=== PATIENT | female | born 1990 | race Caucasian/White ===

== ENCOUNTER 2020-03-22 10:11 | Outpatient (CLI) | payer BC ==
[~2020-03-22] VITALS: Ht 167.6 cm; Wt 117.7 kg
== END 2020-03-22 10:51 | disposition home or self-care (01) ==
LOC: LDOP 10:11
PROVIDERS: ATTEND Obstetrics & Gynecology
DX: O80 Encounter for full-term uncomplicated delivery (principal); Z3A.33 33 weeks gestation of pregnancy
CPT/HCPCS: 59025

== ENCOUNTER 2020-04-19 10:02 | Outpatient (CLI) | payer BC ==
[~2020-04-19] VITALS: Ht 167.6 cm; Wt 118.1 kg
[2020-04-19 10:28] VITALS: BP 120/73
[2020-04-19] MEDS ORDERED: PREN1TAB10 PO (10:47)
== END 2020-04-19 11:00 | disposition home or self-care (01) ==
LOC: LDOP 10:02
PROVIDERS: ATTEND Obstetrics & Gynecology
DX: Z34.83 Encounter for supervision of other normal pregnancy, third trimester (principal); Z3A.37 37 weeks gestation of pregnancy
CPT/HCPCS: 59025

== ENCOUNTER 2020-04-26 06:13 | Inpatient (IN) | payer BC ==
[~2020-04-26] VITALS: Ht 167.6 cm; Wt 119.5 kg
[~2020-04-26 06:13] MED LIST: PREN1TAB10 PO
[2020-04-26 06:30] VITALS: BP 132/60
[2020-04-26] MEDS: D5%-LACTATED RINGERS 1,000 ML IV SCH ×3 (06:30→22:30)
[2020-04-26] MEDS ORDERED: TERBUTALINE 1 MG/ML, 1ML IVPush PRN (06:30)
[2020-04-26] MEDS ORDERED: OXYTOCIN 30U/ 0.9% NaCL 500ML 500 ML IV PRN (06:30)
[2020-04-26] MEDS ORDERED: OXYTOCIN 30U/ 0.9% NaCL 500ML 500 ML IV ONE (06:30)
[2020-04-26] MEDS ORDERED: FENTANYL PF 100 MCG/2ML IV PRN (06:30)
[2020-04-26] MEDS ORDERED: ONDANSETRON 2MG/ML, 2ML IVPush PRN (06:30)
[2020-04-26] MEDS ORDERED: CALCIUM CARBONATE 500 MG TAB.CHEW PO PRN (06:30)
[2020-04-26] MEDS ORDERED: TERBUTALINE 1 MG/ML, 1ML SQ PRN (06:30)
[2020-04-26] MEDS: LACTATED RINGERS 1,000 ML IV SCH ×3 (07:07→19:43)
[2020-04-26] MEDS ORDERED: MISOPROSTOL 25 MCG TABLET ONE ×4 (07:10→21:59)
[2020-04-26] MEDS ORDERED: OXYTOCIN 30U/ 0.9% NaCL 500ML 500 ML ONE (07:10)
[2020-04-26] MEDS ORDERED: INSU100I11 SQ-INSULIN ×3 (07:15→07:16)
[2020-04-26] MEDS ORDERED: INSU100V13 SQ (07:18)
[2020-04-26 07:32] LABS: BASOPHILS % (AUTO) 0 % (0-1); EOSINOPHILS % (AUTO) 1 % (1-7); LYMPHOCYTES % (AUTO) 18 % (22-44); MEAN CORPUSCULAR HEMOGLOBIN 28.1 pg (27.0-34.8); MEAN CORPUSCULAR HGB CONC 33.4 g/dL (32.4-35.8); MONOCYTES % (AUTO) 8 % (2-9); NEUTROPHILS % (AUTO) 74 % (42-75); PLATELET COUNT 269 x10^3/uL (130-400); RED BLOOD COUNT 4.07 x10^6/uL (3.82-5.3); RED CELL DISTRIBUTION WIDTH 15.5 % (9.6-15.2)
[2020-04-26 07:39] LABS: MD NO
[2020-04-26] MEDS ORDERED: NEWBORN KIT ONE ×2 (08:08→08:41)
[2020-04-26] MEDS: MISOPROSTOL 25 MCG TABLET VG PRN ×2 (08:25→13:35)
[2020-04-26] MEDS: INSULIN LISPRO 100 UNIT/ML, 3ML VIAL SQ-INSULIN SCH ×3 (08:31→16:55)
[2020-04-26] MEDS: INSULIN GLARGINE 100 UNITS/ML, PEN SQ-INSULIN SCH (21:20)
[2020-04-26] MEDS ORDERED: FENTANYL PF 100 MCG/2ML ONE (21:59)
[2020-04-26] MEDS: FENTANYL PF 100 MCG/2ML IVPush PRN (22:05)
[2020-04-27] MEDS ORDERED: FENTANYL PF 100 MCG/2ML ONE ×2 (04:51→19:32)
[2020-04-27] MEDS: FENTANYL PF 100 MCG/2ML IVPush PRN ×2 (04:54→19:35)
[2020-04-27] MEDS: D5%-LACTATED RINGERS 1,000 ML IV SCH ×3 (06:30→22:30)
[2020-04-27] MEDS ORDERED: ACETAMINOPHEN 325 MG TABLET ONE (07:05)
[2020-04-27 07:29] VITALS: BP 135/79
[2020-04-27] MEDS ORDERED: ACETAMINOPHEN 325 MG TABLET PO PRN (07:30)
[2020-04-27] MEDS: INSULIN LISPRO 100 UNIT/ML, 3ML VIAL SQ-INSULIN SCH ×3 (08:02→17:20)
[2020-04-27] MEDS: LACTATED RINGERS 1,000 ML IV SCH ×4 (18:48→22:30)
[2020-04-27] MEDS ORDERED: FENTANYL/BUPIV./NS/PF 250 ML EPIDCONT ONE (19:20)
[2020-04-27] MEDS ORDERED: LIDOCAINE 1%, 20ML ONE (19:33)
[2020-04-27] MEDS ORDERED: MISOPROSTOL 200 MCG TABLET ONE (19:33)
[2020-04-27] MEDS ORDERED: BUPIVACAINE 0.25% ONE (19:54)
[2020-04-27] MEDS ORDERED: LACTATED RINGERS 1,000 ML IVBOLUS PRN (20:00)
[2020-04-27] MEDS ORDERED: EPHEDRINE 50 MG/ML, 1ML IVPush PRN (20:00)
[2020-04-27] MEDS ORDERED: NALOXONE 0.4 MG/ML, 1ML IVPush PRN (20:00)
[2020-04-27] MEDS ORDERED: FENTANYL/BUPIV./NS/PF 250 ML EPIDCONT SCH (20:00)
[2020-04-27] MEDS ORDERED: EPHEDRINE 50 MG/ML, 1ML ONE (20:30)
[2020-04-27] MEDS: INSULIN GLARGINE 100 UNITS/ML, PEN SQ-INSULIN SCH (21:00)
[2020-04-28] MEDS ORDERED: OXYTOCIN 30U/ 0.9% NaCL 500ML 500 ML ONE (01:21)
[2020-04-28] MEDS: OXYTOCIN 30U/ 0.9% NaCL 500ML 500 ML IV SCH ×3 (01:23→21:30)
[2020-04-28] MEDS ORDERED: OXYcodone/APAP 5/325MG TABLET PO PRN ×2 (01:30)
[2020-04-28] MEDS ORDERED: SIMETHICONE 80 MG CHEW TAB PO PRN (01:30)
[2020-04-28] MEDS ORDERED: ONDANSETRON 2MG/ML, 2ML IV PRN (01:30)
[2020-04-28] MEDS ORDERED: METHYLERGONOVINE 0.2 MG/ML IM PRN (01:30)
[2020-04-28] MEDS ORDERED: CARBOPROST TROMETHAMINE 250 MCG/ML, 1ML IM PRN (01:30)
[2020-04-28] MEDS ORDERED: MISOPROSTOL 200 MCG TABLET PR PRN (01:30)
[2020-04-28 03:00] VITALS: BP 118/71
[2020-04-28] MEDS: LACTATED RINGERS 1,000 ML IV SCH (04:00)
[2020-04-28] MEDS: PRENATAL VIT/IRON/FA 1 EACH TABLET PO SCH (08:10)
[2020-04-28] MEDS: DOCUSATE 100 MG CAPSULE PO PRN (08:10)
[2020-04-28] MEDS: IBUPROFEN 800 MG TABLET PO PRN ×2 (08:10→17:03)
[2020-04-28 08:19] VITALS: BP 110/68
[2020-04-28 11:06] LABS: BASOPHILS % (AUTO) 0 % (0-1); EOSINOPHILS % (AUTO) 0 % (1-7); LYMPHOCYTES % (AUTO) 10 % (22-44); MEAN CORPUSCULAR HEMOGLOBIN 27.9 pg (27.0-34.8); MEAN CORPUSCULAR HGB CONC 33.1 g/dL (32.4-35.8); MEAN PLATELET VOLUME 8.2 fL (7.4-10.4); MONOCYTES % (AUTO) 10 % (2-9); NEUTROPHILS % (AUTO) 79 % (42-75); PLATELET COUNT 229 x10^3/uL (130-400); RED BLOOD COUNT 3.89 x10^6/uL (3.82-5.3); RED CELL DISTRIBUTION WIDTH 15.4 % (9.6-15.2)
[2020-04-28 11:43] LABS: MD SCAN
[2020-04-28 12:14] VITALS: BP 112/72
[2020-04-28 16:57] VITALS: BP 101/69
[2020-04-28 20:30] VITALS: BP 115/77
[2020-04-29 01:00] VITALS: BP 126/75
[2020-04-29] MEDS: IBUPROFEN 800 MG TABLET PO PRN ×2 (01:23→09:38)
[2020-04-29] MEDS: DOCUSATE 100 MG CAPSULE PO PRN ×2 (01:23→09:38)
[2020-04-29 08:42] VITALS: BP 122/78
[2020-04-29] MEDS ORDERED: IBUP-1222 PO (08:59)
[2020-04-29] MEDS: PRENATAL VIT/IRON/FA 1 EACH TABLET PO SCH (09:38)
[2020-04-29] MEDS: OXYTOCIN 30U/ 0.9% NaCL 500ML 500 ML IV SCH (09:49)
== END 2020-04-29 14:26 | disposition home or self-care (01) | DRG 807 ==
LOC: LDIP 06:13 → 2NW 04-28 02:49
PROVIDERS: ADMIT Obstetrics & Gynecology; ATTEND Obstetrics & Gynecology
PROC: 0U7C7ZZ Dilation of Cervix, Via Natural or Artificial Opening (ICD-10-PCS; principal; 2020-04-27)
PROC: 3E033VJ Introduction of Other Hormone into Peripheral Vein, Percutaneous Approach (ICD-10-PCS; 2020-04-27)
PROC: 10E0XZZ Delivery of Products of Conception, External Approach (ICD-10-PCS; 2020-04-28)
PROC: 0KQM0ZZ Repair Perineum Muscle, Open Approach (ICD-10-PCS; 2020-04-28)
DX: O24.424 Gestational diabetes mellitus in childbirth, insulin controlled (principal); Z37.0 Single live birth; O70.1 Second degree perineal laceration during delivery; O99.214 Obesity complicating childbirth; E66.9 Obesity, unspecified; Z20.828 Contact with and (suspected) exposure to other viral communicable diseases; O99.344 Other mental disorders complicating childbirth; E55.9 Vitamin D deficiency, unspecified; F32.9 Major depressive disorder, single episode, unspecified; F41.9 Anxiety disorder, unspecified; Z91.018 Allergy to other foods; Z79.4 Long term (current) use of insulin; Z3A.38 38 weeks gestation of pregnancy; Z83.3 Family history of diabetes mellitus
CPT/HCPCS: 36415; 82962; 85025; 86592; 86850; 86900; 87635; 87806; G0378; J3010; G0475; J1815; J1817; J2590; J7120